=== PATIENT | male | born 1980 | race Caucasian/White ===

== ENCOUNTER 2023-03-05 16:46 | Outpatient (OUT) | payer OTHER, SELFPAY ==
[2023-03-05 17:22] LABS: Creatinine Urine Random 123.76 mg/dL (20.00-300.00); Microalbum Creatinine Ratio Ur 13.7 mg/g (0.0-29.9); Microalbumin Urine Random 1.7 mg/dL (<=30.0)
[2023-03-05 17:26] LABS: Alanine Aminotransferase 25 U/L (16-63); Albumin Globulin Ratio 1.1; Albumin Level 4.1 g/dL (3.4-5.0); Alkaline Phosphatase 38 U/L (46-116); Anion Gap 14.9; Aspartate Amino Transferase 17 U/L (15-37); BUN Creatinine Ratio 15.4; Bilirubin Total 0.6 mg/dL (0.2-1.0); Calcium 9.2 mg/dL (8.5-10.1); Carbon Dioxide 28.4 mmol/L (21.0-32.0); Chloride 103 mmol/L (98-107); Estimated GFR (African America >60 (>=60); Estimated GFR (Non-African Ame >60 (>=60); Globulin 3.8 g/dL; Glucose 125 mg/dL (74-106); Potassium 4.3 mmol/L (3.5-5.1); Sodium 142 mmol/L (136-145); Total Protein 7.9 g/dL (6.4-8.2)
[2023-03-05 17:34] LABS: Estimated Average Glucose 148 mg/dL; Glycohemoglobin A1C 6.8 % (4.5-6.2)
== END 2023-03-05 16:47 | disposition home or self-care (01) ==
PROVIDERS: PCP Nurse Practitioner Primary Care; Visit Provider Nurse Practitioner Primary Care
DX: E11.65 Type 2 diabetes mellitus with hyperglycemia (principal)
CPT/HCPCS: 36415; 80053; 82043; 82570; 83036

== ENCOUNTER 2023-04-06 10:04 | Outpatient (OUT) | payer OTHER, SELFPAY ==
--- NOTE | 2023-04-06 10:19 | XR_ITS ---
The [address] [address] Patient Name: SOUTH SANCHEZ MRN: [id number] date: 1980 Sex: M Assigned Patient Location: RAD Current Patient Location: [facility] Accession/Order Number: [id number] Exam Date: 04/06/2023 10:20 Report Date: 04/06/2023 16:18 At the request of: ELROY CURRY Procedure: XR cervical spine 5V EXAMINATION: XR cervical spine 5V HISTORY: Cervical Radiculopathy M54.12 ; fell 1 week ago COMPARISON: No relevant comparison available. FINDINGS: BONES: No significant spondylosis, scoliosis, fracture, or visible bony lesion. DISC SPACES: Slight narrowing C2-3, C3-4. PARASPINOUS: Negative. No paraspinous abnormality is seen. OTHER: Negative. XR/XR cervical spine 5V IMPRESSION: 1. No acute bone abnormality. 2. Mild degenerative disc disease. Electronically authenticated by: NEFTALI RAMIREZ Date: 04/06/2023 16:18
--- NOTE | 2023-04-06 10:19 | XR_ITS ---
The [address] [address] Patient Name: SOUTH SANCHEZ MRN: [id number] date: 1980 Sex: M Assigned Patient Location: RAD Current Patient Location: RAD Accession/Order Number: [id number] Exam Date: 04/06/2023 10:20 Report Date: 04/06/2023 16:25 At the request of: ELROY CURRY Procedure: XR thoracic spine 3V EXAMINATION: XR thoracic spine 3V HISTORY: Acute Midline Thoracic Back Pain M54.6 ; fell 1 week ago COMPARISON: No relevant comparison available. FINDINGS: BONES: Slight anterior wedging of T11 vertebral body without increased trabecular density or endplate sclerosis. Mild degenerative disc disease and endplate changes of lower thoracic spine. DISC SPACES: No significant disc height narrowing, subluxation, or endplate abnormality. PARASPINOUS: Negative. No paraspinous abnormality is seen. OTHER: Negative. XR/XR thoracic spine 3V IMPRESSION: 1. T11 mild anterior wedging; developmental versus remote compression fracture. Acute injury is felt less likely. Consider MRI of lumbar spine which would include this region if there remains clinical concern. 2. Mild degenerative disc disease of lower thoracic spine. Electronically authenticated by: NEFTALI RAMIREZ Date: 04/06/2023 16:25
--- NOTE | 2023-04-06 10:19 | XR_ITS ---
[address] [address] Patient Name: SOUTH SANCHEZ MRN: [id number] date: 1980 Sex: M Assigned Patient Location: RAD Current Patient Location: [facility] Accession/Order Number: [id number] Exam Date: 04/06/2023 10:20 Report Date: 04/06/2023 12:40 At the request of: ELROY CURRY Procedure: XR lumbar spine min 4V EXAM: XR lumbar spine min 4V HISTORY: Low Back Pain M54.50 COMPARISON: None. TECHNIQUE: 4 views FINDINGS: Satisfactory alignment. Maintained vertebral body heights and disc spaces. Multilevel endplate degenerative changes of L1 and L2. No acute fracture or subluxation. Unremarkable soft tissues. XR/XR lumbar spine min 4V IMPRESSION: Mild degenerative changes of L1 and L2. Electronically authenticated by: TRENT ALVA Date: 04/06/2023 12:40
== END 2023-04-06 10:05 | disposition home or self-care (01) ==
LOC: RAD 10:07
PROVIDERS: PCP Nurse Practitioner Primary Care; Visit Provider Nurse Practitioner Primary Care
DX: M54.12 Radiculopathy, cervical region (principal); M54.6 Pain in thoracic spine; M54.50 Low back pain, unspecified
CPT/HCPCS: 72050; 72072; 72110